=== PATIENT | female | born 1950 | race Caucasian/White ===

== ENCOUNTER 2016-07-29 20:28 | Emergency (ER) | payer MEDICARE, BC ==
[~2016-07-29] VITALS: Ht 162.6 cm; Wt 91.0 kg
[~2016-07-29 20:28] MED LIST: ALBU2.5V3 NEB; ALBU8.5H3 INH; CALC500T99 PO; FAMO20TA18 PO; LANT3I SC; LEVO200T6 PO; LORA-186 PO; MTF1000T PO; OXYB5SYR2 PO; PRAV10TA43 PO; SERT100T PO; TRAM50TA2 PO
[2016-07-29 20:52] VITALS: Ht 162.6 cm; Wt 91.0 kg
[2016-07-29] MEDS ORDERED: HYDROCODONE/APAP (5/325) TAB PO ONE (22:00)
--- NOTE | 2016-07-29 22:56 | RADRPT ---
PROCEDURE: XR Shoulder. CLINICAL INDICATION: Left shoulder pain. TECHNIQUE: 3 views of the left shoulder. COMPARISON: None available. FINDINGS: There is no fracture or dislocation. The coracoclavicular interval is normal. The joint spaces are preserved. There are no periarticular calcifications. The visualized lung is clear. IMPRESSION: 1. No fracture or dislocation of the left shoulder. RPTAT: HTAR .Terry Real MD, MD Date Time Electronically viewed and signed by .Terry Real MD, on 07/29/2016 22:55 .R/
--- NOTE | 2016-07-29 22:56 | RADRPT ---
PROCEDURE: XR Wrist. CLINICAL INDICATION: Left wrist pain TECHNIQUE: AP, lateral and oblique views of the left wrist were performed. COMPARISON: No prior studies are available for comparison. FINDINGS: No evidence of fracture, dislocation, or subluxation is seen. The bones appear well mineralized. The joint spaces are well preserved. The soft tissues appear intact. There is no radiopaque foreign bod y. Minor osteoarthritic degenerative change of the first carpal-metacarpal joint at the base of the left thumb is identified. IMPRESSION: 1. Mild osteoarthritic degenerative change of the first carpal-metacarpal joint at the base of the left thumb. 2. Otherwise, unremarkable left wrist x-ray series. 3. No acute fracture or dislocation is identified. RPTAT: HMJB .Valeriano Tatum MD, Date Time Electronically viewed and signed by .Valeriano Tatum MD, on 07/29/2016 22:55 .B/
--- NOTE | 2016-07-29 22:58 | RADRPT ---
PROCEDURE: XR Elbow. CLINICAL INDICATION: Left elbow pain TECHNIQUE: Three views of the left elbow are available for review COMPARISON: None available FINDINGS: No acute fracture or dislocation is seen. Mild scattered degenerative changes are noted. No radiopa que foreign body is identified. No fat pad sail sign is identified to indicate a hemarthrosis. There is no significant soft tissue swelling. IMPRESSION: 1. No acute fracture or dislocation. 2. Mild scattered degenerative changes. RPTAT: HFN .Ivetet Barragan MD, Date Time Electronically viewed and signed by .Ivette Barragan MD, on 07/29/2016 22:57 .N/
[2016-07-29] MEDS ORDERED: HYDR-906 PO (23:27)
--- NOTE | 2016-07-29 23:52 | ERD ---
ER Documentation Chief Complaint Date/Time DATE: 07/29/16 TIME: 23:47 Chief Complaint left shoulder pain x 3 days; pain radiates down arm HPI This is a 66-year-old female presents to the ER with left shoulder pain that started 2 weeks ago after she fell onto her left arm. Patient states that over the last 3 days. Start significantly worse it is described as a burning sensation that radiates down her entire arm. Patient has been taking 800 mg of Motrin however it does not help. Patient denies any numbness or tingling of her arm. Patient has had a rotator cuff injury on the right and states that this feels similarly. Patient denies any chest pain, shortness of breath. She denies any fevers or chills. ROS 12 point review of systems was done, all negative except per HPI. Medications Home Meds Active Scripts Hydrocodone/Acetaminophen ([place] 5-325 Tablet) 1 Each Tablet, 1 TAB PO Q6H Y for PAIN, #20 TAB Prov:THIERRY LAM 07/29/16 Tramadol HCl (Tramadol HCl) 50 Mg Tablet, 50 MG PO Q6 Y for PAIN, #20 TAB Prov:DANIELLE DIAMOND MD 12/22/15 Reported Medications Levothyroxine Sodium* (Levothyroxine Sodium*) 200 Mcg Tablet, 225 MCG PO BEFORE BREAKFAST, #30 TAB 12/22/15 Insulin Glargine* (Lantus*) 100 Unit/Ml Soln, 25 UNIT SC DAILY, #1 VIAL 12/22/15 Sertraline Hcl* (Zoloft*) 100 Mg Tablet, 100 MG PO DAILY, TAB 01/01/14 Albuterol Sulfate* (Proair HFA*) 8.5 Gm Hfa.aer.ad, 2 PUFF INH Q4, INH 01/01/14 Pravastatin Sodium* (Pravastatin Sodium*) 10 Mg Tablet, 10 MG PO HS, TAB 01/01/14 Calcium Carbonate ([id number]-[id number]) 1 Tab Tablet, 1 TAB PO BID 01/01/14 Oxybutynin Chloride* (Oxybutynin Chloride*) 5 Mg/5 Ml Syrup, 5 MG PO BID, ML 01/01/14 Metformin* (Glucophage*) 1,000 Mg Tablet, 1000 MG PO BID, TAB 01/01/14 Famotidine* (Famotidine*) 20 Mg Tablet, 20 MG PO BID, TAB 01/01/14 Loratadine* (Claritin*) 10 Mg Tablet, 10 MG PO DAILY, TAB 01/01/14 Albuterol Sulfate* (Albuterol Sulfate* Neb) 0.083%-3 Ml Neb, 2.5 MG NEB Q4H, EA 01/01/14 Allergies Allergies: Coded Allergies: No Known Allergy (Verified , 01/02/14) PMhx/Soc History of Surgery: Yes (C/SX 5 /APPENDECTOMY/LAP UBALDO) Anesthesia Reaction: No Hx Neurological Disorder: No Hx Respiratory Disorders: Yes (ASTHMA) Hx Cardiac Disorders: Yes (HTN) Hx Psychiatric Problems: Yes (DEPRESSION) Hx Miscellaneous Medical Probl: Yes (HYPOTHYROIDISM ) Hx Alcohol Use: No Hx Substance Use: No Hx Tobacco Use: No Smoking Status: Never smoker Physical Exam Vitals Vital Signs Date Time Temp Pulse Resp B/P Pulse Ox O2 Delivery O2 Flow Rate FiO2 07/29/16 20:52 98.3 71 18 138/65 96 Physical Exam GENERAL: The patient is well developed and appropriate for usual state of health , in no apparent distress. HEENT: Atraumatic. CHEST: Clear to auscultation bilaterally. There are no rales, wheezes or rhonchi. HEART: Regular rate and rhythm. No murmurs, clicks, rubs or gallops. EXTREMITIES: Positive drop arm test on the left. Tender to palpation along shoulder joint, elbow joint, wrist joint no snuffbox tendernes. n/v intact. radial ulnar and median nerves are intact NEURO: Alert and oriented. Cranial nerves II through XII are intact. Motor strength in all 4 extremities with 5/5 strength. Sensation grossly intact. Normal speech and gait. SKIN: There is no apparent rash or petechia. The skin is warm and dry. Results 24 hrs Current Medications Medications (Trade) Dose Ordered Sig/Raul Route PRN Reason Start Time Stop Time Status Last Admin Dose Admin Acetaminophen/ Hydrocodone Bitart ([place] (5/325)) 1 tab ONCE ONCE PO 07/29/16 22:00 07/29/16 22:01 DC 07/29/16 22:46 Procedures/MDM EKG was done and read by Dr. Valera 67bpm no st elevation no t wave inversion. This is a 66-year-old female that presents to the ER with left shoulder pain that radiates down her arm. Patient likely has a rotator cuff injury, however at this time unable to diagnosis as further imaging would be needed. X-rays are negative for any fractures or dislocations. Patient is neurovascularly intact to the upper extremity. She was put in a sling without any complications. She was neurovascularly intact before and after sling application.Patient needs to f/u with her PCP within 1-2 days or return to ER sooner if symptoms worsen, my medical decision making was shared with the patient , she understands and agrees with plan. Departure Diagnosis: Primary Impression: Shoulder pain Condition: Stable Patient Instructions: Shoulder Pain (Uncertain Cause) Referrals: EDUARD CARRIZALES MD (PCP) Additional Instructions: Call your primary care doctor TOMORROW for an appointment during the next 1-2 days.See the doctor sooner or return here if your condition worsens before your appointment time. THIERRY LAM July 29, 2016 23:52
[2016-07-29 23:59] VITALS: BP 132/62; PULSE 67; RESP 18; TEMP 98.9
== END 2016-07-30 | disposition home or self-care (01) ==
LOC: FTE 20:28
DX: M25.512 Pain in left shoulder (principal); J45.909 Unspecified asthma, uncomplicated; I10 Essential (primary) hypertension; E03.9 Hypothyroidism, unspecified; E11.9 Type 2 diabetes mellitus without complications; Z79.4 Long term (current) use of insulin; Z79.84 Long term (current) use of oral hypoglycemic drugs
CPT/HCPCS: 73030; 93005

== ENCOUNTER → 2017-01-17 | Outpatient (CLI) | payer MEDICARE, BC ==
[~2017-01-17] MED LIST changes: +HYDR-906 PO; +OPHTHALMIC IRRIG SOLUTION 120 ML ONE; +PHENYLephrine 10% 5 ML OPH ONE; +PROPARACAINE 0.5% 15 ML OPH ONE; +TROPICAMIDE 1% 3 ML OPH ONE
== END | disposition home or self-care (01) ==
LOC: RAD 12:16
PROVIDERS: ATTEND Ophthalmology
DX: H26.492 Other secondary cataract, left eye (principal)
CPT/HCPCS: 66821

== ENCOUNTER 2017-03-23 07:15 | Day surgery (SDC) | END 2017-03-23 13:30 | disposition home or self-care (01) ==